=== PATIENT | male | born 1975 | race Hispanic/Latino ===

== ENCOUNTER 2016-08-28 21:44 | Emergency (ER) | payer OTHER ==
[~2016-08-28] VITALS: Ht 167.6 cm; Wt 118.0 kg
[~2016-08-28 21:44] MED LIST: BUPR150T6 PO; HYDR50TA76 PO; LAMO200T2 PO; LORA-303 PO; RISP2TAB3 PO
[2016-08-28 22:01] VITALS: BP 132/75; PULSE 115; RESP 18; O2SAT 95
--- NOTE | 2016-08-28 22:17 | ED.REPORT ---
HPI-Psychiatric Illness Date of Service Aug 28, 2016 ED Provider: Brigido Arias MD Patient is an intoxicated 41 year old male with a history of alcohol abuse, schizoaffective disorder, and bipolar disorder who presents to the ED reporting that he is experiencing auditory hallucinations, suicidal ideations, and homicidal ideations of unknown onset. He states the auditory hallucinations are by someone named "Kamryn Jim". Patient admits to drinking a Hurricaine tonight ( alcohol) and marijuana. He denies using methamphetamine or any other substances. He reports taking his psychiatric medications as prescribed. Patient stated to the medtronics technician that the door of his ED room should be locked " for everyone's safety". Patient also requests to "take off his helmet", however he is not wearing a helmet. Patient's history is limited by his current intoxicated state. Medications in the patient's backpack: Paliperidone 9mg ER once daily Hydroxyzine 50mg, 2 tablets nightly at bedtime Nursing Notes Stated Complaint: SUICIDAL Chief Complaint: Psychiatric Complaint Nursing Notes Reviewed: Yes Allergies: Coded Allergies: No Known Allergies (Verified Allergy, Unknown, 04/27/16) Scheduled Bupropion HCl (Bupropion-XL) 150 Mg Tab.er.24h 150 MG PO DAILY Lamotrigine (Lamotrigine) 200 Mg Tablet 200 MG PO DAILY Lorazepam (Ativan) 1 Mg Tablet 1 MG PO ASDIRECTED 2mg q6hrs, then 1mg q6hrs, then 1mg q8hrs, then 1mg q12hrs, then 1mg Risperidone (Risperidone) 2 Mg Tablet 2 MG PO DAILY Scheduled PRN Hydroxyzine HCl (HydrOXYzine Hcl) 50 Mg Tablet 50 MG PO DAILY PRN PRN For Sleep General Time Seen by MD: 22:14 Chief Complaint Hallucinations, auditory, Homicidal ideation, Suicidal ideation Hx Obtained From: Patient Unable to Obtain Hx: Intoxicated (limited by intoxicated) Arrived By: Walk-in Onset Occurred: Onset unknown Symptom Duration: Duration unknown Recent Healthcare: No recent doctor visit, No recent hospitalization Similar Sx Previous: Yes Risk-Psychiatric Illness Suicide Risk Stratification Suicide Risk Factors - Adult: : Alcohol use RF Statements: Risk factors reviewed Past Medical History Past Medical History schizoaffective disorder with bipolar component Bipolar Disorder alcohol abuse Past Surgical History Denies Smoking History Current Every Day Smoker Social History Alcohol Use: >5 per day Drug Use: Denies drug use Other Social History: Good social support, Local resident Ambulatory Status Independent Review of Systems Unable to Obtain ROS Intoxicated (limited by intoxication) Psychiatric: Reports: Homicidal ideation, Suicidal ideation Physical Exam Initial Vital Signs Vital Signs (First) Date Time Temp Pulse Resp B/P Pulse Ox O2 Delivery O2 Flow Rate FiO2 08/28/16 22:01 36.4 115 18 132/75 95 Room Air Initial VS: Reviewed, Vital signs abnormal Neck: Supple, Full range of motion Extremities: Vascular intact, Neuro intact Skin: Warm, Dry, No cyanosis General/Constitutional: Awake, Alert Behavior: Positive: Appears intoxicated malodorous feet Neurologic: Speech NL, No motor deficits, No sensory deficits Abnormal Thinking / Perception: Positive: Hallucinations, auditory, Homicidal, no plan, Suicidal, no plan Head / Eyes: Normocephalic, PERRL, EOMI ENT: Airway patent Respiratory / Chest: Breath sounds NL, Breath sounds = bilat, No respiratory distress, No rales, No rhonchi, No wheezing Cardiovascular: Heart rate NL, Regular rhythm, Heart sounds NL, No murmurs Interpretation & Diagnostics Interpretation & Diagnostics: Breathalyzer: 0.194 Bedside Urine Tox Dip: Positive for Marijuana, all else negative. Lab Results Interpretation Test 08/29/16 00:37 Hold Urine Received (Received) Re-Eval/Medical Decision Med Decision/Clinical Course 41-year-old male with a history of substance abuse and schizophrenia presents with intoxication and suicidal ideation. He is delusional and paranoid. His alcohol level by breathalyzer was 0.194. He warned us that he needed to be in a locked room or someone might get hurt. Initial screening evaluation was done and he was placed in a locked room. He was given his evening hydroxyzine dose. His care will be turned over at change of shift this morning to Dr. Christy. Source of Hx: Old records Re-Evaluation/Progress #1: Time of Eval: 22:30 Re-Evaluation/Progress Note: Face to face evaluation completed and patient was placed into seclusion. Patient requested to have the door closed for our staff safety. Re-Evaluation/Progress #2: Time of Eval: 05:40 Re-Evaluation/Progress Note: Patient has sleep in the ED overnight without incident. Discharge & Departure Shift Change Sign-Out Patient Care Transferred: Yes Discussed Complaint(s): Yes Response to Therapy: Improved Additonal Information: Re-evaluation once sober. Impression: Primary Impression: Auditory hallucinations Additional Impressions: Suicidal ideation Schizoaffective disorder Schizoaffective disorder type: bipolar Qualified Code: F25.0 - Schizoaffective disorder, bipolar type Alcohol intoxication Complication of substance-induced condition: uncomplicated Qualified Code: F10.120 - Alcohol abuse with intoxication, uncomplicated Referrals: [facility] (PCP) Care Transferred to: Dr. Christy Care Transferred at: 06:00 Jonnathanibjt Attestation Portions of this note were transcribed by Melissa Sparks. I, Dr. Arias personally performed the history, physical exam and medical decision-making; I reviewed and confirmed the accuracy of the information in the transcribed note. Signed by: Jojo Alvarado, 08/28/2016 0540 copies to: [facility] Howard L MD Aug 28, 2016 22:16 Melissa Sparks Aug 28, 2016 22:32
[2016-08-29 00:12] VITALS: BP 122/79; PULSE 114; RESP 16; O2SAT 95
[2016-08-29] MEDS ORDERED: PALIPERIDONE 3 MG PO ONE (10:35)
[2016-08-29] MEDS ORDERED: lamoTRIgine 100 mg Tablet PO ONE (10:35)
== END 2016-08-29 11:12 ==
LOC: SED 21:44
DX: F25.0 Schizoaffective disorder, bipolar type (principal); F10.220 Alcohol dependence with intoxication, uncomplicated; R45.851 Suicidal ideations; F12.10 Cannabis abuse, uncomplicated; F19.20 Other psychoactive substance dependence, uncomplicated; F17.200 Nicotine dependence, unspecified, uncomplicated
CPT/HCPCS: 81002; 82075; 99285; Q0177

== ENCOUNTER 2016-08-30 13:32 | Emergency (ER) | payer OTHER ==
[~2016-08-30] VITALS: Ht 167.6 cm; Wt 100.0 kg
[2016-08-30 13:38] VITALS: BP 126/75; PULSE 107; RESP 16; O2SAT 96
--- NOTE | 2016-08-30 14:00 | ED.REPORT ---
HPI-General Illness Date of Service Aug 30, 2016 ED Provider: Dr. Cerrato Pt is a 41 y/o male w/ a hx of schizoaffective disorder, bipolar, alcohol abuse , [facility] with multiple psychiatric complaints. Pt reports associated paranoid delusions, visual hallucinations, homicidal ideations towards his hallucinations, agitation, anxiety. He denies SI. He states that when he is on his psychiatric medications his hallucinations and paranoia resolve. He occasionally uses THC but denies other drug use. The patient had 3 beers today. Breathalyzer: 0.203 at time of arrival Nursing Notes Stated Complaint: DETOX,HALLUCINATIONS,ALCOHOL USE Chief Complaint: Psychiatric Complaint Nursing Notes Reviewed: Yes Allergies: Coded Allergies: No Known Allergies (Verified Allergy, Unknown, 04/27/16) Scheduled Bupropion HCl (Bupropion-XL) 150 Mg Tab.er.24h 150 MG PO DAILY Lamotrigine (Lamotrigine) 200 Mg Tablet 200 MG PO DAILY Lorazepam (Ativan) 1 Mg Tablet 1 MG PO ASDIRECTED 2mg q6hrs, then 1mg q6hrs, then 1mg q8hrs, then 1mg q12hrs, then 1mg Risperidone (Risperidone) 2 Mg Tablet 2 MG PO DAILY Scheduled PRN Hydroxyzine HCl (HydrOXYzine Hcl) 50 Mg Tablet 50 MG PO DAILY PRN PRN For Sleep General Time Seen by MD: 13:59 Chief Complaint Other (Psych) Hx Obtained From: Patient, Sap Specialist Arrived By: Walk-in Sudden in Onset?: No Symptom Duration: Since onset Severity: Current: No pain currently Severity: Maximum: No pain Recent Healthcare: Previous diagnosis Similar Sx Previous: Yes Past Medical History Past Medical History schizoaffective disorder with bipolar component Bipolar Disorder alcohol abuse Past Surgical History Denies Smoking History Current Every Day Smoker Social History Alcohol Use: >5 per day Drug Use: Denies drug use Other Social History: Good social support, Local resident Ambulatory Status Independent Review of Systems Full Review of Systems Psychiatric: Reports: Agitation, Change mental status, Delusional, Hallucinations, visual, Homicidal ideation, Hostile, Denies: Suicidal ideation Complete sys rev & neg: except as marked. Physical Exam Vital Signs Vital Signs Date Time Temp Pulse Resp B/P Pulse Ox O2 Delivery O2 Flow Rate FiO2 08/30/16 13:38 36.9 107 16 126/75 96 Room Air Initial VS: Reviewed, Vital signs abnormal Head / Eyes: Atraumatic, Normocephalic, PERRL ENT: Mucous membranes moist, Conjunctiva normal, No scleral icterus Neck: Supple, Full range of motion Respiratory: Breath sounds normal, Clear to auscultation, No respiratory distress Cardiovascular: Regular rate & rhythm, Heart sounds normal, Intact distal pulses Skin: Warm, Dry, No cyanosis Neurologic: Alert, Oriented, Nonfocal General/Constitutional: Awake, Alert, Cooperative, Not toxic appearing Psychiatric: Not suicidal Abnormal Thinking / Perception: Positive: Hallucinations, visual, Homicidal, no plan (vague twoards hallucinations) Odd affect Interpretation & Diagnostics Lab Results Interpretation Result Diagram: 08/30/16 1510 08/30/16 1510 Test 08/30/16 14:58 08/30/16 15:10 Hold Urine Received (Received) White Blood Count 8.4th/mm3 (3.8-10.1) Red Blood Count 4.88mil/mm3 (4.40-5.80) Hemoglobin 14.2g/dL (13.8-17.2) Hematocrit 41.6% (41.0-50.0) Mean Corpuscular Volume 85.2fL (81-100) Mean Corpuscular Hemoglobin 29.1pg (27.0-35.0) Mean Corpuscular Hemoglobin Concent 34.1% (32.0-37.0) Red Cell Distribution Width 15.3% (12.3-15.4) Platelet Count 192bil/L (150-400) Neutrophils (%) (Auto) 66.7% (40-74) Lymphocytes (%) (Auto) 24.0% (14-46) Monocytes (%) (Auto) 6.5% (4-12) Eosinophils (%) (Auto) 1.9% (0-5) Basophils (%) (Auto) 0.4% (0-3) Sodium Level 138mEq/L (134-144) Potassium Level 4.1mEq/L (3.5-5.2) Chloride Level 96mEq/L (97-108) Carbon Dioxide Level 25mmol/L (18-29) Blood Urea Nitrogen 6mg/dL (6-24) Creatinine 0.68mg/dL (0.76-1.27) Estimat Glomerular Filtration Rate 137mL/min (>59) Glucose Level 139mg/dL (60-99) Calcium Level 8.5mg/dL (8.5-10.1) Total Bilirubin 0.6mg/dL (0.0-1.2) Aspartate Amino Transf (AST/SGOT) 62U/L (0-50) Alanine Aminotransferase (ALT/SGPT) 43U/L (0-44) Alkaline Phosphatase 70U/L (25-150) Total Protein 7.3g/dL (6.4-8.4) Albumin 4.4g/dL (3.4-5.0) Thyroid Stimulating Hormone (TSH) 1.110uIU/mL (0.450-4.500) Hold Vazquez Top Tube Received (Received) Lab Results Interpretation: Breathalyzer: 0.203 at time of arrival Breathalyzer at 17:45 - 0.127 Urine drug screen: positive for THC only Re-Eval/Medical Decision Med Decision/Clinical Course Patient is intoxicated and having homicidal ideations. His homicidal ideations are directed at his visual hallucinations and a general sense of distrust of people around him. Currently waiting for him to clinically and legally sober and then will have mental health evaluation. Time of Eval: 17:55 Re-Evaluation/Progress Note: Remains behaved throughout stay. Care will be transferred at shift change. Consultation : Consulted With: daycare worker Oxygen Plant Operator: Agrees with eval, Agrees with plan Note: Will evaluate once his alcohol level is 0.08 Counseled Regarding: Diagnosis, Lab results Discharge & Departure Primary Impression: Schizoaffective disorder Schizoaffective disorder type: bipolar Qualified Code: F25.0 - Schizoaffective disorder, bipolar type Discharge Condition All VS Reviewed: Yes Condition: Stable Referrals: [facility] (PCP) Care Transferred to: Dr. Raúl Kim DO Care Transferred at: 18:00 Jonnathanibjt Attestation Portions of this note were transcribed by Shlomo Douglass. I, Dr. Cerrato personally performed the history, physical exam and medical decision-making; I reviewed and confirmed the accuracy of the information in the transcribed note. Signed by Jojo Gallagher, 08/30/16 - 1500 copies to: [facility] Timothy S DO Aug 30, 2016 14:00 SHLOMO DOUGLASS Aug 30, 2016 14:02
[2016-08-30] MEDS ORDERED: PALIPERIDONE 3 MG PO ONE (14:55)
[2016-08-30] MEDS ORDERED: risperiDONE 1 mg Tablet PO ONE (14:55)
[2016-08-30] MEDS ORDERED: lamoTRIgine 100 mg Tablet PO ONE (14:55)
[2016-08-30 15:20] LABS: BASOPHILS % (AUTO) 0.4 % (0-3); EOSINOPHILS % (AUTO) 1.9 % (0-5); MONOCYTES % (AUTO) 6.5 % (4-12); Mean Corpuscular Hemoglobin 29.1 pg (27.0-35.0); Mean Corpuscular Volume 85.2 fL (81-100); NEUTROPHILS % (AUTO) 66.7 % (40-74); Platelet Count 192 bil/L (150-400)
[2016-08-31 01:17] VITALS: BP 128/75; PULSE 74; RESP 19; O2SAT 98
[2016-08-31 03:45] VITALS: BP 123/68; PULSE 101; O2SAT 96
[2016-08-31 06:34] VITALS: BP 122/70; PULSE 73; RESP 20; O2SAT 96
[2016-08-31 10:50] VITALS: BP 133/79; PULSE 86; O2SAT 94
[2016-08-31 15:49] VITALS: BP 123/74; PULSE 92; O2SAT 96
[2016-08-31 17:00] VITALS: BP 123/74; PULSE 92; RESP 20; O2SAT 96
== END 2016-08-31 18:30 | disposition other institution (70) ==
LOC: SED 13:32
DX: F25.0 Schizoaffective disorder, bipolar type (principal); R44.1 Visual hallucinations; R45.850 Homicidal ideations; R45.851 Suicidal ideations; F10.10 Alcohol abuse, uncomplicated; F41.9 Anxiety disorder, unspecified; R45.1 Restlessness and agitation; F17.200 Nicotine dependence, unspecified, uncomplicated
CPT/HCPCS: 36415; 80053; 81002; 82075; 84443; 85025; 99285; Q0177

== ENCOUNTER 2016-09-09 19:43 | Emergency (ER) | payer OTHER ==
[~2016-09-09] VITALS: Ht 167.6 cm; Wt 100.0 kg
[2016-09-09 19:50] VITALS: BP 116/79; PULSE 120; RESP 18; O2SAT 95
--- NOTE | 2016-09-09 21:04 | ED.REPORT ---
HPI-Psychiatric Illness Date of Service Sep 09, 2016 ED Provider: Raúl Kim DO A 41 year old male with a history of schizoaffective disorder with bipolar component, alcohol abuse, and multiple ED visits is brought to the ED by police due to intoxication. The pt smells heavily of alcohol and is stating that people are following him. The pt admits to visual and auditory hallucinations, as well as suicidal ideation. He is yelling and acting aggressively in the ED. History is limited by pt condition. Nursing Notes Stated Complaint: INTOXICATED,MENTAL HEALTH Chief Complaint: Psychiatric Complaint Nursing Notes Reviewed: Yes Allergies: Coded Allergies: No Known Allergies (Verified Allergy, Unknown, 09/09/16) Scheduled Bupropion HCl (Bupropion-XL) 150 Mg Tab.er.24h 150 MG PO DAILY Lamotrigine (Lamotrigine) 200 Mg Tablet 200 MG PO DAILY Lorazepam (Ativan) 1 Mg Tablet 1 MG PO ASDIRECTED 2mg q6hrs, then 1mg q6hrs, then 1mg q8hrs, then 1mg q12hrs, then 1mg Risperidone (Risperidone) 2 Mg Tablet 2 MG PO DAILY Scheduled PRN Hydroxyzine HCl (HydrOXYzine Hcl) 50 Mg Tablet 50 MG PO DAILY PRN PRN For Sleep General Time Seen by MD: 21:03 Chief Complaint Other (Intoxication) Hx Obtained From: Patient, Police Arrived By: Police Recent Healthcare: Recent doctor visit, Recent hospitalization Similar Sx Previous: Yes Risk-Psychiatric Illness Suicide Risk Stratification Suicide Risk Factors - Adult: : Alcohol use RF Statements: Risk factors reviewed Past Medical History Past Medical History schizoaffective disorder with bipolar component bipolar Disorder alcohol abuse Past Surgical History Denies Smoking History Current Every Day Smoker Social History Alcohol Use: >5 per day Drug Use: Denies drug use Other Social History: Good social support, Local resident Ambulatory Status Independent Review of Systems Unable to Obtain ROS Intoxicated Physical Exam Initial Vital Signs Vital Signs (First) Date Time Temp Pulse Resp B/P Pulse Ox O2 Delivery O2 Flow Rate FiO2 09/09/16 19:50 36.5 120 18 116/79 95 Room Air Initial VS: Reviewed General/Constitutional: Awake, Alert grossly intoxicated Neurologic: No motor deficits, No sensory deficits Speech: Positive: Slurred Psychiatric: Affect NL Head / Eyes: Atraumatic, Normocephalic nystagmus ENT: Atraumatic, Airway patent, Mucous membranes moist Respiratory / Chest: Atraumatic, Breath sounds NL, Breath sounds = bilat, No respiratory distress Cardiovascular: Heart rate NL, Regular rhythm, Heart sounds NL Abdomen: Atraumatic, Soft, Non-tender Skin: Atraumatic, Color NL, No rash, Warm, Dry Neck: Atraumatic, Supple, Full range of motion Back: Atraumatic, Full range of motion Upper Extremity / MS: Atraumatic, Full range of motion Lower Extremity / Pelvis / MS: Atraumatic, Full range of motion Interpretation & Diagnostics Pulse Oximetry Interpretation Pulse Oximetry Interpretation: 95% on room air Pulse Oximetry: Pulse Ox normal Re-Eval/Medical Decision Med Decision/Clinical Course Mr. Gallegos was placed in a gooden bed. Evidently he admitted to drinking alcohol and is feeling suicidal. I first became involved when he was threatening and aggressively approaching one of the nurses. I helped accompany him to his bed at which point in time he agreed for chemical sedation. He was given Benadryl, Haldol and Ativan. He rested. He was placed in a secure room due to the fact that he had verbalized suicidality and then had become combative and threatening. He slept for a while and I went back and talked to him. He agreed to have labs drawn however when the tree tapping laborer went in there he again became aggressive and approach the both the tree tapping laborer as well as the lab technician was observing him. He had to be chemically sedated again with Haldol and Ativan. At 2 in the morning he is resting. I cannot perform an adequate psychiatric evaluation. He is refusing blood and refusing to give a urine at this time. He does not show any signs of traumatic brain injury. We will continue to observe him the emergent department so he is clinically sober and a mental health evaluation can be obtained. Source of Hx: Old records Re-Evaluation/Progress #1: Time of Eval: 21:17 Re-Evaluation/Progress Note: Pt acting aggressively in ED. Chad carlos is called and pt is placed in seclusion. Pt is seen immediately after being placed in seclusion. Re-Evaluation/Progress #2: Time of Eval: 23:58 Patient Status: Condition improved Re-Evaluation/Progress Note: Face to face recheck. Pt's condition has improved. He is oriented and comfortable with the door open. The pt has no complaints at this time. Re-Evaluation/Progress #3: Time of Eval: 00:40 Re-Evaluation/Progress Note: Pt becomes agitated and aggressive with staff. Door is closed. Re-Evaluation/Progress #4: Time of Eval: 01:07 Re-Evaluation/Progress Note: Pt rechecked, who is resting. Counseled Regarding: Diagnosis, Lab results Discharge & Departure Shift Change Sign-Out Patient Care Transferred: Yes Discussed Complaint(s): Yes Laboratory Evaluation: Ordered, not yet done Impression: Primary Impression: Suicidal ideation Additional Impression: Acute situational disturbance Discharge Condition All VS Reviewed: Yes Condition: Stable Referrals: [facility] (PCP) Care Transferred to: Dr. Carmona Care Transferred at: 03:00 Jojo Attestation Portions of this note were transcribed by Ghanshyam Tovar. I, Dr. Kim personally performed the history, physical exam and medical decision-making; I reviewed and confirmed the accuracy of the information in the transcribed note. Signed by: Jojo Acuna, 09/09/2016 and 02:21. copies to: [facility] Todd P DO Sep 09, 2016 21:04 GHANSHYAM TOVAR Sep 10, 2016 00:02
[2016-09-09] MEDS ORDERED: Haloperidol 5 mg/mL Inj IM PRN (21:05)
[2016-09-10 00:27] VITALS: BP 114/84; PULSE 104; RESP 16; O2SAT 95
[2016-09-10] MEDS ORDERED: Haloperidol 5 mg/mL Inj IM PRN (00:55)
[2016-09-10 06:55] LABS: BASOPHILS % (AUTO) 0.3 % (0-3); MONOCYTES % (AUTO) 10.4 % (4-12); Mean Corpuscular Hemoglobin 29.5 pg (27.0-35.0); Mean Corpuscular Volume 85.6 fL (81-100); NEUTROPHILS % (AUTO) 47.5 % (40-74); Platelet Count 205 bil/L (150-400)
[2016-09-10 07:11] VITALS: BP 118/75; PULSE 94; RESP 14; O2SAT 98
[2016-09-10 11:26] VITALS: BP 131/78; PULSE 100; RESP 16; O2SAT 98
[2016-09-10 12:01] VITALS: BP 131/78; PULSE 100; RESP 16; O2SAT 98
== END 2016-09-10 12:01 | disposition home or self-care (01) ==
LOC: SED 19:43
DX: R45.851 Suicidal ideations (principal); F43.0 Acute stress reaction; Z86.59 Personal history of other mental and behavioral disorders
CPT/HCPCS: 36415; 80053; 84443; 85025; 90791; 96372; 99284; G0480; J1200; J1630; J2060

== ENCOUNTER 2016-10-01 22:08 | Emergency (ER) | payer OTHER ==
[~2016-10-01] VITALS: Ht 170.2 cm; Wt 106.8 kg
[2016-10-01 22:22] VITALS: BP 107/69; PULSE 111; RESP 16; O2SAT 95
--- NOTE | 2016-10-01 22:56 | ED.REPORT ---
HPI-Psychiatric Illness Date of Service Oct 01, 2016 ED Provider: Saji Carmona MD Patient is an intoxicated 41 year old male with a history of schizoaffective disorder with bipolar component, alcohol abuse, and prior psychiatric admission due to suicidal ideations presents to the ED expressing both homicidal and suicidal ideations, unknown onset. Patient states that "I feel like killing somebody" and states that it would make him happy. Patient also stated that he wishes to harm himself. On arrival to the ED, patient is agitated and aggressive towards staff. Patient was pharmacologically sedated, limiting the ability for the patient to provide history and be evaluated. Patient has previously been admitted to [place] for suicidal ideations. The patient is frequently seen in the ED due to suicidal ideations while intoxicated. Nursing Notes Stated Complaint: MENTAL HEALTH Chief Complaint: Psychiatric Complaint Nursing Notes Reviewed: Yes Allergies: Coded Allergies: No Known Allergies (Verified Allergy, Unknown, 09/09/16) Scheduled Bupropion HCl (Bupropion-XL) 150 Mg Tab.er.24h 150 MG PO DAILY Lamotrigine (Lamotrigine) 200 Mg Tablet 200 MG PO DAILY Lorazepam (Ativan) 1 Mg Tablet 1 MG PO ASDIRECTED 2mg q6hrs, then 1mg q6hrs, then 1mg q8hrs, then 1mg q12hrs, then 1mg Risperidone (Risperidone) 2 Mg Tablet 2 MG PO DAILY Scheduled PRN Hydroxyzine HCl (HydrOXYzine Hcl) 50 Mg Tablet 50 MG PO DAILY PRN PRN For Sleep General Time Seen by MD: 22:55 Chief Complaint Homicidal ideation, Suicidal ideation Hx Obtained From: Patient Arrived By: Walk-in Onset Occurred: Onset unknown Recent Healthcare: Recent doctor visit Similar Sx Previous: Yes Risk-Psychiatric Illness Suicide Risk Stratification Suicide Risk Factors - Adult: : Alcohol use: Previous attempt: Prior psych admission RF Statements: Risk factors reviewed Past Medical History Past Medical History schizoaffective disorder with bipolar component alcohol abuse prior psychiatric admission due to suicidal ideations Past Surgical History Denies Smoking History Current Every Day Smoker Social History Alcohol Use: >5 per day Drug Use: Denies drug use Other Social History: Good social support, Local resident Ambulatory Status Independent Review of Systems Unable to Obtain ROS Intoxicated Physical Exam Initial Vital Signs Vital Signs (First) Date Time Temp Pulse Resp B/P Pulse Ox O2 Delivery O2 Flow Rate FiO2 10/01/16 22:22 37.2 111 16 107/69 95 Room Air Initial VS: Reviewed General/Constitutional: Awake, Alert Behavior: Positive: Aggressive, Agitated, Appears intoxicated, Combative exam limited by the patient's condition on arrival to the ED Neurologic: Speech NL, No motor deficits Unable to Evaluate: Positive: Uncooperative Head / Eyes: Atraumatic, Normocephalic ENT: Airway patent Respiratory / Chest: No respiratory distress Heart Rate / Rhythm: Positive: Tachycardia Skin: Color NL, Warm Neck: Supple, Full range of motion Upper Extremity / MS: Full range of motion, No deformity Lower Extremity / Pelvis / MS: Full range of motion, No deformity Interpretation & Diagnostics Urine Tox Dip: Positive for marijuana. All else negative. Lab Results Interpretation Result Diagram: 10/01/16 2344 10/01/16 2344 Test 10/01/16 23:44 10/02/16 01:00 White Blood Count 9.2th/mm3 (3.8-10.1) Red Blood Count 5.10mil/mm3 (4.40-5.80) Hemoglobin 15.0g/dL (13.8-17.2) Hematocrit 43.7% (41.0-50.0) Mean Corpuscular Volume 85.7fL (81-100) Mean Corpuscular Hemoglobin 29.4pg (27.0-35.0) Mean Corpuscular Hemoglobin Concent 34.3% (32.0-37.0) Red Cell Distribution Width 15.6% (12.3-15.4) Platelet Count 249bil/L (150-400) Neutrophils (%) (Auto) 51.0% (40-74) Lymphocytes (%) (Auto) 40.9% (14-46) Monocytes (%) (Auto) 5.0% (4-12) Eosinophils (%) (Auto) 1.6% (0-5) Basophils (%) (Auto) 0.4% (0-3) Sodium Level 141mEq/L (134-144) Potassium Level 4.6mEq/L (3.5-5.2) Chloride Level 105mEq/L (97-108) Carbon Dioxide Level 18mmol/L (18-29) Blood Urea Nitrogen 9mg/dL (6-24) Creatinine 0.66mg/dL (0.76-1.27) Estimat Glomerular Filtration Rate 141mL/min (>59) Glucose Level 95mg/dL (60-99) Calcium Level 8.8mg/dL (8.5-10.1) Total Bilirubin 0.3mg/dL (0.0-1.2) Aspartate Amino Transf (AST/SGOT) 25U/L (0-50) Alanine Aminotransferase (ALT/SGPT) 22U/L (0-44) Alkaline Phosphatase 67U/L (25-150) Total Protein 7.9g/dL (6.4-8.4) Albumin 4.3g/dL (3.4-5.0) Thyroid Stimulating Hormone (TSH) 1.330uIU/mL (0.450-4.500) Hold Cunha Top Tube Received (Received) Alcohols 193mg/dL (0-10) Hold Urine Received (Received) Re-Eval/Medical Decision Med Decision/Clinical Course 41-year-old schizoaffective disorder and history of violence presents with homicidal and suicidal ideation. He was completely uncooperative and required restraints via code carlos. He was given Haldol in multiple aliquots along with Ativan, finally resulting in moderate sedation. He does have alcohol on board, but only marijuana on his urine tox. This obviously does not screen for engineering project designer drugs baths salts etc. He is signed out [address] kyara Velasquez for evaluation once he is metabolized off his current load of intoxicants. Source of Hx: Old records Re-Evaluation/Progress #1: Time of Eval: 23:10 Re-Evaluation/Progress Note: Seclusion order signed by Dr. Blount at 2255, after the patient demonstrated violent behavior towards staff. Patient stated "I am going to pretend to be asleep and then kill the next person that comes in here". Patient threw his urinal and crackers around the room. Face to face evaluation completed at 2310. Chad Cunha called. Patient was sedated. Re-Evaluation/Progress #2: Time of Eval: 23:53 Re-Evaluation/Progress Note: Patient was placed in restraints after demonstrating aggressive behavior towards staff. He charged the agriculture laborer after lab draw. Face to face evaluation performed. Re-Evaluation/Progress #3: Time of Eval: 00:48 Re-Evaluation/Progress Note: Patient continues to be violent in retraints, shaking the bed and yelling at staff. Another code cunha was called. Re-Evaluation/Progress #4: Time of Eval: 01:10 Re-Evaluation/Progress Note: Patient was removed from restraints. However, he remains in seclusion. Discharge & Departure Shift Change Sign-Out Patient Care Transferred: Yes Discussed Complaint(s): Yes Laboratory Evaluation: Back, reviewed by me Additonal Information: Sobering Impression: Primary Impression: Alcohol intoxication Complication of substance-induced condition: uncomplicated Qualified Code: F10.120 - Alcohol abuse with intoxication, uncomplicated Additional Impressions: Suicidal ideation Acute situational disturbance Schizoaffective disorder Schizoaffective disorder type: bipolar Qualified Code: F25.0 - Schizoaffective disorder, bipolar type Discharge Condition All VS Reviewed: Yes Condition: Stable Referrals: [facility] (PCP) Care Transferred to: Dr. Sullivan Care Transferred at: 06:00 Scribe Attestation Portions of this note were transcribed by Melissa Sparks. I, Dr. Carmona personally performed the history, physical exam and medical decision-making; I reviewed and confirmed the accuracy of the information in the transcribed note. Signed by: Jojo Alvarado, 10/02/2016 0548 copies to: [facility] Christopher W MD Oct 01, 2016 22:56 Melissa Sparks Oct 01, 2016 23:13
[2016-10-01] MEDS ORDERED: Haloperidol 5 mg/mL Inj ONE (23:07)
[2016-10-01] MEDS ORDERED: Haloperidol 5 mg/mL Inj IM ONE (23:55)
[2016-10-02 00:08] LABS: BASOPHILS % (AUTO) 0.4 % (0-3); EOSINOPHILS % (AUTO) 1.6 % (0-5); Mean Corpuscular Hemoglobin 29.4 pg (27.0-35.0); Mean Corpuscular Volume 85.7 fL (81-100); Platelet Count 249 bil/L (150-400)
[2016-10-02] MEDS ORDERED: Haloperidol 5 mg/mL Inj IM ONE (00:35)
[2016-10-02] MEDS ORDERED: Ketamine 100 mg/mL 5 mL Inj ONE (00:46)
[2016-10-02 05:01] VITALS: BP 117/67; PULSE 90; O2SAT 98
[2016-10-02 11:40] VITALS: BP 118/78; PULSE 102; RESP 16; O2SAT 95
--- NOTE | 2016-11-07 | NUR ---
Correction to Violent Restraints Assessment documented 10/02/16 at 0001; need to change date restraint applied date to 10/01/16 (from 10/02/16); time of 2350 remains correct
== END 2016-10-02 11:41 | disposition home or self-care (01) ==
LOC: SED 22:08
DX: F10.120 Alcohol abuse with intoxication, uncomplicated (principal); R45.851 Suicidal ideations; F43.0 Acute stress reaction; F25.0 Schizoaffective disorder, bipolar type; F17.200 Nicotine dependence, unspecified, uncomplicated
CPT/HCPCS: 36415; 51701; 80053; 82948; 84443; 85025; 96372; 99285; G0480; J1630; J2060